=== PATIENT | female | born 1985 | race Hispanic/Latino ===

== ENCOUNTER 2017-02-07 20:34 | Emergency (ER) | payer SELFPAY ==
[2017-02-07] MEDS ORDERED: Naloxone 0.4 mg/ml Inj (Adult) ONE (21:06)
--- NOTE | 2017-02-07 21:06 | ED PDOC ---
Arrival/HPI - General Time Seen by Provider: 02/07/17 20:35 Historian: Patient - History of Present Illness Narrative History of Present Illness (Text): 02/07/17 21:01 Osvaldo Lockett is a 31 year old female, whose past medical history includes IVDA , who presents to the Emergency department brought in by EMS after they were alerted of a possible overdose by the patient's friend prior to arrival. On arrival to the scene, patient was awake and subsequently brought to the emergency room. Patient states she injected 8 bags of heroin, notes she usually injects 10 bags. Patient reports she does this recreationally. Patient states she has history of back surgery a few years prior. Patient denies any fever, chills, chest pain, shortness of breath, nausea, vomiting, diarrhea, urinary symptoms, back pain, neck pain, headache, dizziness, or any other somatic complaints. Patient also denies any other drug/alcohol abuse, suicidal ideation , or homicidal ideation. Symptom Onset: Gradual Symptom Course: Unchanged Activities at Onset: Light Context: Home Past Medical History - Provider Review Nursing Documentation Reviewed: Yes - Tetanus Immunization Tetanus Immunization: Unknown - Psychiatric Hx Depression: No Hx Emotional Abuse: No Hx Physical Abuse: No Hx Substance Use: No - Past Surgical History Past Surgical History: No Previous - Suicidal Assessment Feels Threatened In Home Enviroment: No Family/Social History - Physician Review Nursing Documentation Reviewed: Yes Family/Social History: Unknown Family HX Hx Alcohol Use: Yes Hx Substance Use: No Hx Substance Use Treatment: No Allergies/Home Meds Allergies/Adverse Reactions: Allergies No Known Allergies Allergy (Verified 05/25/12 11:37) Home Medications: Home Meds Medication Instructions Recorded Confirmed No Known Home Med 02/07/17 02/07/17 Review of Systems - Physician Review All systems were reviewed & negative as marked: Yes - Review of Systems Constitutional: Normal. absent: Fevers Eyes: Normal ENT: Normal Respiratory: Normal. absent: SOB, Cough Cardiovascular: Normal. absent: Chest Pain Gastrointestinal: Normal. absent: Abdominal Pain, Diarrhea, Nausea, Vomiting Genitourinary Female: Normal. absent: Dysuria, Frequency, Hematuria, Urine Output Changes Musculoskeletal: Normal. absent: Back Pain, Neck Pain Skin: Normal. absent: Rash Neurological: Normal. absent: Headache, Dizziness Endocrine: Normal Hemo/Lymphatic: Normal Psychiatric: Other (+possible overdose). absent: Suicidal Ideation Physical Exam Vital Signs Reviewed: Yes Vital Signs Temp Pulse Resp BP Pulse Ox 02/08/17 01:10 50 L 17 97/71 L 97 02/07/17 22:32 54 L 16 104/75 100 02/07/17 20:35 97.3 F L 79 16 120/83 96 Temperature: Afebrile Blood Pressure: Normal Pulse: Regular Respiratory Rate: Normal Appearance: Positive for: Well-Appearing Pain Distress: None Mental Status: Positive for: other (Drowsy but easily arousable) - Systems Exam Head: Present: Atraumatic, Normocephalic Pupils: Present: Other (Pupils are small, but reactive) Extroacular Muscles: Present: EOMI Conjunctiva: Present: Normal Ears: Present: Normal, NORMAL TM, Normal Canal. No: Erythema, TM Bulging, Fluid , TM Perf Mouth: Present: Moist Mucous Membranes Pharnyx: Present: Normal. No: ERYTHEMA, EXUDATE, TONSILS ENLARGED, Peritonsilar Swelling, Uvular Deviation, Muffled/Hoarse Voice, Strider, Soft Palate/Uvular Edema Nose (External): Present: Atraumatic Nose (Internal): Present: Normal Inspection Neck: Present: Normal Range of Motion (Supple). No: Meningeal Signs, MIDLINE TENDERNESS, Paraspinal Tenderness Respiratory/Chest: Present: Clear to Auscultation, Good Air Exchange. No: Respiratory Distress, Accessory Muscle Use Cardiovascular: Present: Regular Rate and Rhythm, Normal S1, S2. No: Murmurs Abdomen: Present: Normal Bowel Sounds. No: Tenderness, Distention, Peritoneal Signs Upper Extremity: Present: Normal Inspection. No: Cyanosis, Edema Lower Extremity: Present: Normal Inspection. No: Edema Neurological: Present: GCS=15, CN II-XII Intact, Speech Normal Skin: Present: Warm, Dry, Normal Color. No: Rashes Psychiatric: Present: Other (Drowsy, but easily arousable). No: Suicidal Ideation, Homicidal Ideation Medical Decision Making ED Course and Treatment: 02/07/17 21:02 Impression: 31 year old female brought in by EMS for possible overdose. Differential Diagnosis included but are not limited to: overdose Plan: -- Labs, alcohol level -- Urinalysis, urine drug screen -- IV fluids -- Narcan -- Reassess and disposition Progress Notes: 02/08/17 02:33 Pt re-evaluated. Awake, alert. Pt states she feels fine and states she will refrain heroin in the future. Again, pt with no SI/HI, states strictly recreational use. Pt will be d/c but will remain overnight to sleep until morning. - Lab Interpretations Lab Results: 02/07/17 20:55 02/07/17 20:55 Lab Results 02/07/17 21:57: Urine Opiates Screen Positive H, Urine Methadone Screen Negative , Ur Barbiturates Screen Negative, Ur Phencyclidine Scrn Negative, Ur Amphetamines Screen Negative, U Benzodiazepines Scrn Positive, U Oth Cocaine Metabols Positive H, U Cannabinoids Screen Negative 02/07/17 20:55: Alcohol, Quantitative < 10 02/07/17 20:55: Sodium 141, Potassium 3.4 L, Chloride 102, Carbon Dioxide 27, Anion Gap 16, BUN 12, Creatinine 0.9, Est GFR ( Amer) > 60, Est GFR (Non- Af Amer) > 60, Random Glucose 147 H, Calcium 9.5, Total Bilirubin 0.7, AST 21, ALT 22, Alkaline Phosphatase 64, Total Protein 8.4 H, Albumin 4.7, Globulin 3.7 , Albumin/Globulin Ratio 1.3 02/07/17 20:55: WBC 11.6 H, RBC 4.55, Hgb 13.9, Hct 39.6, MCV 87.0, MCH 30.5, MCHC 35.1, RDW 12.4, Plt Count 401, MPV 10.4, Gran % 62.6, Lymph % (Auto) 29.8, [place] % (Auto) 5.9, Eos % (Auto) 1.6, Baso % (Auto) 0.1, Gran # 7.27 H, Lymph # 3.5 H, [place] # 0.7 H, Eos # 0.2, Baso # 0.01 I have reviewed the lab results: Yes - Medication Orders Current Medication Orders: Sodium Chloride (Sodium Chloride 0.9%) 1,000 mls @ 100 mls/hr IV .Q10H AARON Last Admin: 02/07/17 21:20 Dose: 100 mls/hr eMAR Start Stop Document 02/07/17 21:20 IT (Rec: 02/07/17 21:20 IT [id number]) Intravenous Solution Start Date 12/13/17 Start Time 21:20 Discontinued Medications Naloxone HCl (Narcan) 0.8 mg IVP STAT STA Stop: 02/07/17 21:10 Last Admin: 02/07/17 21:20 Dose: 0.8 mg IVP Administration Document 02/07/17 21:20 IT (Rec: 02/07/17 21:20 IT [id number]) Charges for Administration # of IVP Administrations 1 - Scribe Statement The provider has reviewed the documentation as recorded by the King Jennings Provider Scribe Attestation: All medical record entries made by the Scribe were at my direction and personally dictated by me. I have reviewed the chart and agree that the record accurately reflects my personal performance of the history, physical exam, medical decision making, and the department course for this patient. I have also personally directed, reviewed, and agree with the discharge instructions and disposition. Disposition/Present on Arrival - Present on Arrival Any Indicators Present on Arrival: No History of DVT/PE: No History of Uncontrolled Diabetes: No Urinary Catheter: No History Surgical Site Infection Following: None - Disposition Have Diagnosis and Disposition been Completed?: Yes Diagnosis: Heroin abuse, Cocaine abuse Disposition: HOME/ ROUTINE Disposition Time: 02:35 Patient Plan: Discharge Patient Problems: Current Active Problems Problem Status Onset Heroin abuse Acute Condition: GOOD Discharge Instructions (ExitCare): Cocaine Abuse (ED), Narcotic Abuse (ED) Additional Instructions: Avoid heroin/cocaine use/follow up [facility]. Referrals: [facility] [Outside] - Follow up with primary
[2017-02-07] MEDS ORDERED: Naloxone 0.4 mg/ml Inj (Adult) IVP STA (21:09)
[2017-02-07 21:10] VITALS: BMI 20.5
[2017-02-07] MEDS ORDERED: Sodium Chloride 0.9% 1,000 ML IV SCH (21:15)
[2017-02-07 21:30] LABS: BASO # 0.01 K/mm3 (0.0-2.0); BASO % 0.1 % (0.0-3.0); EOS # 0.2 (0.0-0.7); EOS % 1.6 % (1.5-5.0); GRAN # 7.27 (1.4-6.5); GRAN % 62.6 % (50.0-68.0); HEMATOCRIT 39.6 % (36.0-48.0); LYMPH # 3.5 (1.2-3.4); LYMPH % 29.8 % (22.0-35.0); MEAN CORPUSCULAR HEMOGLOBIN 30.5 pg (25.0-35.0); MEAN CORPUSCULAR HGB CONC 35.1 g/dl (31.0-37.0); MEAN PLATELET VOLUME 10.4 fl (7.0-11.0); MONO # 0.7 (0.1-0.6); MONO % 5.9 % (1.0-6.0); RED CELL DISTRIBUTION WIDTH 12.4 % (11.5-14.5); WHITE BLOOD COUNT 11.6 10^3/ul (4.5-11.0)
[2017-02-07 21:40] LABS: ALKALINE PHOSPHATASE 64 U/L (38-126); ALT/SGPT 22 U/L (7-56); AST/SGOT 21 U/L (14-36); BILIRUBIN,TOTAL 0.7 mg/dL (0.2-1.3); BLOOD UREA NITROGEN 12 mg/dL (7-21); CALCIUM 9.5 mg/dL (8.4-10.5); CARBON DIOXIDE 27 mmol/L (21-33); CHLORIDE 102 mmol/L (98-107); GFR AFRICAN-AMERICAN > 60; GLUCOSE,RANDOM 147 mg/dL (70-110); POTASSIUM 3.4 mmol/L (3.6-5.0); SODIUM 141 mmol/L (132-148); TOTAL PROTEIN 8.4 g/dL (5.8-8.3)
[2017-02-07 21:42] LABS: ALB/GLOB RATIO 1.3 (1.1-1.8)
[2017-02-08 01:11] VITALS: RESP 17
[2017-02-08 03:59] VITALS: O2SAT 98
[2017-02-08 05:48] VITALS: BP 114/53; PULSE 62; TEMP 98.2
== END 2017-02-08 06:00 | disposition home or self-care (01) ==
LOC: ED 20:34
DX: F11.10 Opioid abuse, uncomplicated (principal); F14.10 Cocaine abuse, uncomplicated
CPT/HCPCS: 80053; 85025; 96374; 99285; G0480; J2310; J7040

== ENCOUNTER 2017-04-10 17:47 | Emergency (ER) | payer MEDICAID ==
[2017-04-10 17:50] VITALS: BMI 21.2
[2017-04-10 18:10] VITALS: RESP 18; TEMP 98
[2017-04-10] MEDS ORDERED: TDAP Vaccine 0.5 mL Syr IM ONE (19:08)
[2017-04-10] MEDS ORDERED: Silver Sulfadiazine 1% Cream (25 gm) TP STA (19:33)
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
[2017-04-10 20:47] VITALS: BP 131/91; PULSE 83
[2017-04-10 20:54] VITALS: O2SAT 100
== END 2017-04-10 21:11 | disposition home or self-care (01) ==
LOC: ED 17:47
DX: F19.10 Other psychoactive substance abuse, uncomplicated (principal); T22.30XA Burn of third degree of shoulder and upper limb, except wrist and hand, unspecified site, initial encounter; X16.XXXA Contact with hot heating appliances, radiators and pipes, initial encounter; Y92.89 Other specified places as the place of occurrence of the external cause; Z23 Encounter for immunization